=== PATIENT | female | born 1955 | race Caucasian/White ===

== ENCOUNTER 2019-11-13 10:50 | Emergency (ER) | payer BC, SELFPAY ==
[2019-11-13 10:57] VITALS: BP 145/69; PULSE 92; RESP 17; O2SAT 95
--- NOTE | 2019-11-13 11:37 | ED.GENADULT ---
HPI - General Adult General Chief complaint: Skin/Abscess/Foreign Body <Tavares Oliveira PA-C - Last Filed: 11/13/19 11:54> Stated complaint: rash/swelling to face <Tavares Oliveira PA-C - Last Filed: 11/13/19 11:54> Time Seen by Provider: 11/13/19 10:54 <Tavares Oliveira PA-C - Last Filed: 11/13/19 11:54> Source: patient <Tavares Oliveira PA-C - Last Filed: 11/13/19 11:54> Mode of arrival: ambulatory <Tavares Oliveira PA-C - Last Filed: 11/13/19 11:54> Limitations: no limitations <Tavares Oliveira PA-C - Last Filed: 11/13/19 11:54> History of Present Illness HPI narrative: Patient is a 64-year-old female who presents to emergency department for evaluation of rash to the left side of the face and in the oropharynx patient was seen in urgent care and given mupirocin antibiotics and presents again with continued rash patient notes that she initially has some discomfort prior to the onset of the rash patient was prescribed oral and topical antibiotics as well as antibiotics for the left thigh patient on arrival to emergency department is in the room in no distress <Tavares Oliveira PA-C - Last Filed: 11/13/19 11:54> Related Data Allergies/adverse reactions: Allergies Allergy/AdvReac Type Severity Reaction Status Date / Time Sulfa (Sulfonamide Allergy Rash Verified 11/13/19 11:00 Antibiotics) <Tavares Oliveira PA-C - Last Filed: 11/13/19 11:54> Review of Systems Review of Systems: All systems reviewed & are unremarkable except as noted in HPI and below <Tavares Oliveira PA-C - Last Filed: 11/13/19 11:54> [facility] Past Medical History Medical History: Medical History (Updated 11/13/19 @ 11:41 by Tavares Oliveira PA-C) Obese <Tavares Oliveira PA-C - Last Filed: 11/13/19 11:54> Social History Social History: Social History (Updated 11/13/19 @ 11:38 by Tavares Oliveira PA-C) Smoking status: Former smoker <Tavares Oliveira PA-C - Last Filed: 11/13/19 11:54> Exam Narrative: Exam Narrative: GENERAL: Well-appearing, well-nourished, and in no acute distress. HEAD: Normocephalic, atraumatic. EYES: PERRLA and EOMI. left eye with conjunctival injection ENT: Nares clear, no rhinorrhea or epistaxis. Mucous membranes moist. Oropharynx without tonsillar hypertrophy exudate. Patient with healing lesions involving the left cheek upper lip and in the oropharynx all left-sided in the oropharynx you can tell that they were more blister in nature patient without any exudate uvula midline no trismus or drooling NECK: Supple. No adenopathy or masses. CHEST: Clear to auscultation. No respiratory distress. No wheezes rales or rhonchi HEART: Regular rate and rhythm. No murmur heard. EXTREMITIES: Normal range of motion. No edema. SKIN: Warm, dry, no rash. NEURO: No focal deficits. Alert and oriented x3. Cranial nerves II through XII grossly intact PSYCH: Normal mood and affect. <Tavares Oliveira PA-C - Last Filed: 11/13/19 11:54> Course Course Emergency Course: Patient with likely shingles will be referred back to primary care <Tavares Oliveira PA-C - Last Filed: 11/13/19 11:54> Patient presented for evaluation of continued rash which involves the left side of the face in a dermatomal distribution. This is very consistent with shingles, trigeminal nerve distribution. Positive Francois sign. Patient is in the oropharynx that follow a linear pathway. Patient was advised to discontinue the medication she had been started on at the urgent care which will not treat her problem. Patient will be started on acyclovir, we did stain the eye with fluorescein to ensure no dendrites or ocular involvement. No corneal involvement on exam. Patient will be started on acyclovir, no steroids. She was given follow-up with her primary care provider. Advised to keep though blisters covered until they are no longer draining. She is advised to stay away from the
[2019-11-13] MEDS: FLUORESCEIN SOD 1 MG/STRIP EACH EYE (11:50)
[2019-11-13 12:28] VITALS: BP 137/87; PULSE 88; RESP 16; O2SAT 99
== END 2019-11-13 12:28 | disposition home or self-care (01) ==
PROVIDERS: Emergency Provider Emergency Medicine
DX: B02.9 Zoster without complications (principal); Z87.891 Personal history of nicotine dependence; E66.9 Obesity, unspecified; Z68.32 Body mass index [BMI] 32.0-32.9, adult
CPT/HCPCS: 99283